=== PATIENT | male | born 1980 | race Caucasian/White ===

== ENCOUNTER 2023-02-27 13:42 | Emergency (ER) | payer BC ==
[~2023-02-27] VITALS: Ht 165.1 cm; Wt 86.2 kg
[2023-02-27 13:49] VITALS: BP_SYST 134; PULSE 85; RESP 18; TEMP 98.3; O2SAT 98
[2023-02-27] MEDS ORDERED: KETOROLAC TROMETHAMINE 30 MG VIAL IM ONE (14:00)
[2023-02-27] MEDS ORDERED: ACETAMINOPHEN 500 MG TABLET PO ONE (14:00)
[2023-02-27] MEDS ORDERED: KETOROLAC TROMETHAMINE 60 MG/2 ML VIAL IM ONE (14:45)
[2023-02-27] MEDS ORDERED: HYDROcodone/ACETAMIN 5-325 MG TAB (NORCO/ VICODIN) PO ONE (14:45)
[2023-02-27] MEDS ORDERED: carisoprodoL 350 MG TABLET PO ONE (14:45)
[2023-02-27] MEDS ORDERED: IBUP-1971 PO (16:14)
[2023-02-27] MEDS ORDERED: SOM350 PO (16:14)
[2023-02-27] MEDS ORDERED: HYDR-3917 PO (16:14)
[2023-02-27 16:34] VITALS: BP_SYST 120; PULSE 81; RESP 16; TEMP 98.4; O2SAT 96
== END 2023-02-27 16:35 | disposition home or self-care (01) ==
LOC: SED 13:42
DX: S39.012A Strain of muscle, fascia and tendon of lower back, initial encounter (principal); M54.32 Sciatica, left side; Z79.899 Other long term (current) drug therapy; X50.0XXA Overexertion from strenuous movement or load, initial encounter; Y93.89 Activity, other specified; Y92.89 Other specified places as the place of occurrence of the external cause; Y99.8 Other external cause status
CPT/HCPCS: 99283; 72110; 96372; J1885